=== PATIENT | female | born 1995 | race Caucasian/White ===

== ENCOUNTER 2021-07-18 13:58 | Emergency (ER) | payer OTHER ==
[~2021-07-18] VITALS: Ht 167.6 cm; Wt 159.0 kg
--- NOTE | 2021-07-18 14:38 | PHYS DOC ---
Past History Past Surgical History: Cholecystectomy General Adult EDM: Chief Complaint: ALLERGIC REACTION HPI: HPI: Patient is a 18-year-old female coming in for flushing and rash started about 30 minutes prior to arrival. Patient was diagnosed with a sinus infection and started on amoxicillin, took the first dose a couple hours ago. Has had amoxicillin 1 time before about a year ago without reaction. Patient says she had some nausea but denies any throat, lip, or tongue swelling. Review of Systems: Review of Systems: All other systems within normal limits except for as noted in the HPI Allergies: Allergies: Allergies Coded Allergies Type Severity Reaction Last Updated Verified No Known Drug Allergies 07/18/21 No Physical Exam: PE: Constitutional: Well developed, well nourished, no acute distress, non-toxic appearance. [] HENT: Normocephalic, atraumatic, bilateral external ears normal, nose normal. [] Eyes: PERRLA, conjunctiva normal, no discharge. [] Neck: No rigidity, supple, no stridor. [] Cardiovascular: Regular rate and rhythm, brisk cap refill [] Lungs & Thorax: Non labored symmetric respirations, no tachypnea or respiratory distress [] Abdomen: Soft, nondistended. Skin: Warm, dry, symmetric erythematous rash to face, chest, bilateral upper extremities, blanching. Back: Unremarkable Extremities: No deformities, range of motion grossly intact, no lower extremity edema [] Neurologic: Alert and oriented X 3, no focal deficits noted. [] Psychologic: Affect normal, judgement normal, mood normal. [] Current Patient Data: Vital Signs: Vital Signs Date Time Temp Pulse Resp B/P (MAP) Pulse Ox O2 Delivery O2 Flow Rate FiO2 07/18/21 14:20 98.3 107 18 153/89 (110) 98 Room Air EKG: EKG: [] Radiology/Procedures: Radiology/Procedures: [] Heart Score: C/O Chest Pain: No Risk Factors: Risk Factors: DM, Current or recent (<one month) smoker, HTN, HLP, family history of CAD, obesity. Risk Scores: Score 0 - 3: 2.5% MACE over next 6 weeks - Discharge Home Score 4 - 6: 20.3% MACE over next 6 weeks - Admit for Clinical Observation Score 7 - 10: 72.7% MACE over next 6 weeks - Early Invasive Strategies Course & Med Decision Making: Course & Med Decision Making Patient's symptoms greatly improved after Benadryl. Observed in the emerged part without reemergence of symptoms. We will change patient's antibiotics since patient has been having 2 weeks of sinusitis antibiotic treatment is still appropriate. Lissett Disclaimer: Lissett Disclaimer: This electronic medical record was generated, in whole or in part, using a voice recognition dictation system. Departure Departure: Impression: Primary Impression: Allergic reaction Additional Impression: Sinusitis Disposition: HOME / SELF CARE / HOMELESS Condition: IMPROVED Referrals: CHRYSTAL DESAI APRN (PCP) Patient Instructions: Drug Allergy Scripts Famotidine (FAMOTIDINE) 40 Mg Tablet 1 TAB PO DAILY for antacid for 10 Days, #10 TAB 3 Refills Prov: JOANNA WALLIS MD 07/18/21 Hydroxyzine Hcl (HYDROXYZINE HCL) 25 Mg Tablet 1 TAB PO TID PRN for RASH, #30 TAB Prov: JOANNA WALLIS MD 07/18/21 Azelastine Hcl (AZELASTINE HCL) 137 Mcg/0.137 Ml [place].pump 2 SPR NS BID for sinusitis for 30 Days, #30 ML 0 Refills Prov: JOANNA AWLLIS MD 07/18/21 Doxycycline Hyclate (DOXYCYCLINE HYCLATE) 100 Mg Tablet 1 TAB PO BID for antibiotic, #14 TAB Prov: JOANNA WALLIS MD 07/18/21 JOANNA WALLIS MD July 18, 2021 14:37
[2021-07-18] MEDS ORDERED: diphenhydrAMINE 50 MG/ML VIAL IM ONE (14:45)
[2021-07-18] MEDS ORDERED: FAMOTIDINE 20 MG TABLET PO ONE (14:45)
[2021-07-18 15:24] VITALS: BP 156/85
[2021-07-18] MEDS ORDERED: DOXY100T PO (15:49)
[2021-07-18] MEDS ORDERED: AZEL137S3 NS (15:49)
[2021-07-18] MEDS ORDERED: FAMO40TA4 PO (15:49)
[2021-07-18] MEDS ORDERED: HYDR25TA PO (15:49)
== END 2021-07-18 15:56 | disposition home or self-care (01) ==
LOC: ER 13:58
DX: J32.9 Chronic sinusitis, unspecified (principal); T78.40XA Allergy, unspecified, initial encounter; X58.XXXA Exposure to other specified factors, initial encounter
CPT/HCPCS: 96372; 99283; J1200